=== PATIENT | male | born 1960 | race Caucasian/White ===

== ENCOUNTER 2017-07-24 12:11 | Day surgery (SDC) | payer OTHER ==
[~2017-07-24] VITALS: Ht 175.3 cm; Wt 64.3 kg
[2017-07-24 13:24] VITALS: BP 116/76
[2017-07-24] MEDS ORDERED: LIDOCAINE 1%, 2ML SQ PRN (13:30)
[2017-07-24] MEDS ORDERED: LACTATED RINGERS 1,000 ML IV SCH (13:30)
[2017-07-24] MEDS ORDERED: PHEN200C3 PO (13:35)
[2017-07-24] MEDS ORDERED: ASPI-496 PO (13:35)
[2017-07-24] MEDS ORDERED: MORP30TA PO (13:35)
[2017-07-24] MEDS ORDERED: POLY17PO5 PO (14:21)
[2017-07-24] MEDS ORDERED: TRAZ150T62 PO (14:21)
[2017-07-24] MEDS ORDERED: ENOX40SY4 SQ (14:21)
[2017-07-24] MEDS ORDERED: GABA600T2 PO (14:21)
[2017-07-24] MEDS ORDERED: ACET650S21 PO (14:21)
[2017-07-24] MEDS ORDERED: PROPOFOL 10 MG/ML, 20ML ONE (15:06)
[2017-07-24] MEDS ORDERED: MIDAZOLAM 1 MG/ML, 2ML ONE (15:07)
[2017-07-24] MEDS ORDERED: FENTANYL PF 100 MCG/2ML ONE (15:14)
[2017-07-24] MEDS ORDERED: ACETAMINOPHEN 325 MG TABLET PO PRN (15:30)
[2017-07-24] MEDS ORDERED: METOPROLOL 1 MG/ML, 5ML IV PRN (15:30)
[2017-07-24] MEDS ORDERED: EPHEDRINE 50 MG/ML, 1ML IVPush PRN (15:30)
[2017-07-24] MEDS ORDERED: HYDROmorphone 1 MG/ML, 1ML IV PRN (15:30)
[2017-07-24] MEDS ORDERED: LIDOCAINE GEL 2%, 5ML ONE (15:30)
[2017-07-24] MEDS ORDERED: HYDROcodone/APAP 7.5-325MG/15ML UDC PO PRN (15:30)
[2017-07-24] MEDS ORDERED: ONDANSETRON 2MG/ML, 2ML IVPush PRN (15:30)
[2017-07-24] MEDS ORDERED: FENTANYL PF 100 MCG/2ML IV PRN (15:30)
[2017-07-24] MEDS ORDERED: LABETALOL 5MG/ML, 20ML IV PRN (15:30)
[2017-07-24] MEDS ORDERED: OXYcodone 5 MG/5 ML ORAL.SOL UDC PO PRN (15:30)
[2017-07-24] MEDS ORDERED: hydrALAzine 20 MG/ML, 1ML IV PRN (15:30)
[2017-07-24] MEDS ORDERED: ALBUTEROL SULFATE 2.5 MG/3 ML NPPB PRN (15:30)
[2017-07-24] MEDS ORDERED: OXYcodone 5 MG/5 ML ORAL.SOL UDC ONE (16:15)
== END 2017-07-24 18:25 ==
LOC: OUT 12:11
PROVIDERS: ATTEND Internal Medicine
DX: C20 Malignant neoplasm of rectum (principal); Z85.038 Personal history of other malignant neoplasm of large intestine; Z98.890 Other specified postprocedural states; Z95.0 Presence of cardiac pacemaker; Z93.3 Colostomy status
CPT/HCPCS: 36415; 45341; 85610; 85730; J2250; J2704; J3010